=== PATIENT | female | born 1970 | race Caucasian/White ===

== ENCOUNTER → 2018-08-18 | Outpatient (CLI) | payer BC | LOC: COL.RAD 10:07 | DX: N28.89 Other specified disorders of kidney and ureter (principal); I82.3 Embolism and thrombosis of renal vein; R91.1 Solitary pulmonary nodule | CPT/HCPCS: Q9967 ==

== ENCOUNTER → 2018-08-24 | Outpatient (CLI) | payer BC | LOC: COL.RAD 14:30 | DX: N28.89 Other specified disorders of kidney and ureter (principal); E27.8 Other specified disorders of adrenal gland; R93.422 Abnormal radiologic findings on diagnostic imaging of left kidney; R91.8 Other nonspecific abnormal finding of lung field | CPT/HCPCS: Q9967 ==

== ENCOUNTER 2018-10-05 06:51 | Outpatient (CLI) | payer BC ==
[~2018-10-05] VITALS: Ht 167.6 cm; Wt 153.6 kg
[2018-10-05] VITALS (13 sets, daily range): BP systolic 100–153; BP diastolic 50–79; PULSE 43–79
[~2018-10-05 06:51] MED LIST: ASPIRIN 81M81 MG/TA2 PO; CELEXA 20MG20 MG/TAB PO; COLACE 100100 MG/CAP PO; ISTALOL 2.5 ML2.5 ML OD; LEVOXYL0.05 MG PO; MIRALAX119G PO; NORVASC 10MG10 MG PO; OMEGA-3 1000 MG1 CAP PO; PERCOCET 325 MG1 TA2 PO; PHILITH; PRINZIDE 12.5 M1 TA1 PO; TOPROL XL 25MG25 MG PO; XALATAN EYE DROPS OD
--- NOTE | 2018-10-05 08:15 | NUR ---
pt to ct per ambulation. Pt positioned prone on ct table. Monitors applied. O2 on at 2l/nc.
--- NOTE | 2018-10-05 08:35 | NUR ---
Specimen obtained by Dr Britt and placed in formalin and RPMI. Specimens labeled.
--- NOTE | 2018-10-05 10:42 | NUR ---
Duscharge instructions given to pt.pt verbalizes understanding.INT removed,catheter tip intact.
--- NOTE | 2018-10-05 10:50 | NUR ---
Pt escorted out by this nurse.pt requested to ambulate,refused offer of wheelchair.Ambulation observed steady gait,no distress observed.Mother to drive pt home.
== END 2018-10-05 11:10 | disposition home or self-care (01) ==
LOC: COL.RAD 06:51
DX: C64.2 Malignant neoplasm of left kidney, except renal pelvis (principal); R91.8 Other nonspecific abnormal finding of lung field
CPT/HCPCS: J2250; J3010

== ENCOUNTER → 2018-11-02 | Outpatient (CLI) | payer BC | LOC: COL.RAD 10:23 | DX: C64.2 Malignant neoplasm of left kidney, except renal pelvis (principal); C78.2 Secondary malignant neoplasm of pleura; E27.8 Other specified disorders of adrenal gland; K45.8 Other specified abdominal hernia without obstruction or gangrene; Z90.5 Acquired absence of kidney; Z98.890 Other specified postprocedural states | CPT/HCPCS: Q9967 ==

== ENCOUNTER 2018-12-16 20:14 | Emergency (ER) | payer BC ==
[~2018-12-16] VITALS: Ht 170.2 cm; Wt 145.5 kg
[2018-12-16 20:21] VITALS: TEMP 98
[2018-12-16] MEDS ORDERED: DIFLUCAN 100MG100 MG PO (21:06)
[2018-12-16] MEDS ORDERED: KEYTRUDA25 MG/ML IV (21:07)
[2018-12-16 21:24] LABS: BASO # 0.1 (0.0-0.2); BASO % 0.5 % (0.0-2.0); EOS # 0.4 (0.0-0.7); EOS % 4.6 % (0-4.0); GRAN # 6.4 (1.4-6.5); GRAN % 68.4 % (42.2-75.2); HEMATOCRIT 37.9 % (37.0-47.0); HEMOGLOBIN 12.9 g/dl (12.5-16.0); LYMPH # 1.8 (1.2-3.4); LYMPH % 19.1 % (20.0-51.0); MEAN CELL VOLUME 86 fl (80.0-100.0); MEAN CORPUSCULAR HEMOGLOBIN 29 pg (27.0-31.0); MEAN CORPUSCULAR HGB CONC 34 g/dl (33.0-37.0); MEAN PLATELET VOLUME 9.4 fl (7.4-10.4); MONO # 0.6 (0.1-0.6); MONO % 6.8 % (1.7-9.3); PLATELET COUNT 166 K/mm3 (130-400); RED BLOOD COUNT 4.42 M/mm3 (4.10-5.30); REDCELL DISTRIBUTION WIDTH-CV 15.7 % (11.5-14.5)
[2018-12-16 21:25] LABS: COLLECTION METHOD CLEAN CATCH
[2018-12-16 21:34] LABS: PH 7 (5-8); SQUAMOUS EPITHELIAL 0-2 /hpf; URINE APPEARANCE Clear; URINE BACTERIA None Seen /hpf; URINE BILIRUBIN Negative (NEGATIVE); URINE BLOOD Negative (NEGATIVE); URINE COLOR Yellow; URINE GLUCOSE Negative (NEGATIVE); URINE KETONE Negative (NEGATIVE); URINE LEUKOCYTE ESTERASE Negative (NEGATIVE); URINE NITRATE Negative (NEGATIVE); URINE PROTEIN(semi-quant) 1+ (NEGATIVE); URINE RBC 0-2 /hpf; URINE UROBILINOGEN Negative (NEGATIVE)
[2018-12-16 21:37] LABS: ALANINE AMINOTRANSFERASE 30 U/L (9-52); ALBUMIN 4.1 gm/dL (3.5-5.0); ALKALINE PHOSPHATASE 77 U/L (50-136); ANION GAP 11 mmol/L (7-16); AST,SGOT 39 U/L (15-37); BILIRUBIN,TOTAL 0.5 mg/dL (0.0-1.0); BLOOD UREA NITROGEN 23 mg/dL (7-17); C-REACTIVE PROTEIN 3.1 mg/dL (0.0-0.9); CALCIUM 9.8 mg/dL (8.4-10.2); CARBON DIOXIDE 28 mmol/L (22-30); CHLORIDE 101 mmol/L (98-107); CREATININE, serum 1.27 (0.52-1.25); GLUCOSE 93 mg/dL (74-106); LIPASE 217 U/L (23-300); POTASSIUM 4.4 mmol/L (3.4-5.0); SODIUM 139 mmol/L (137-145); TOTAL PROTEIN 8.1 gm/dL (6.4-8.2)
[2018-12-16 21:55] LABS: TROPONIN-I < 0.012 ng/mL (0.000-0.035)
[2018-12-16 22:50] VITALS: BP 180/97; PULSE 47
== END 2018-12-16 22:50 | disposition home or self-care (01) ==
LOC: COL.ER 20:14
PROVIDERS: Emergency Medicine
DX: C64.9 Malignant neoplasm of unspecified kidney, except renal pelvis (principal); C78.00 Secondary malignant neoplasm of unspecified lung; I10 Essential (primary) hypertension; Z79.82 Long term (current) use of aspirin
CPT/HCPCS: J7030; Q9967

== ENCOUNTER → 2019-01-17 | Outpatient (CLI) | payer BC ==
[~2019-01-17] MED LIST changes: +DIFLUCAN 100MG100 MG PO; +KEYTRUDA25 MG/ML IV
== END ==
LOC: COL.RAD 07:19
DX: C64.2 Malignant neoplasm of left kidney, except renal pelvis (principal)
CPT/HCPCS: Q9967

== ENCOUNTER → 2020-06-21 | Outpatient (CLI) | payer MEDICAID | LOC: COL.RAD 07:48 | DX: C64.2 Malignant neoplasm of left kidney, except renal pelvis (principal); K76.0 Fatty (change of) liver, not elsewhere classified; K43.9 Ventral hernia without obstruction or gangrene; E27.8 Other specified disorders of adrenal gland; M89.9 Disorder of bone, unspecified; R91.8 Other nonspecific abnormal finding of lung field; Z90.5 Acquired absence of kidney | CPT/HCPCS: Q9967 ==

== ENCOUNTER → 2020-10-04 | Outpatient (CLI) | payer MEDICAID | LOC: COL.RAD 08:53 | DX: C64.2 Malignant neoplasm of left kidney, except renal pelvis (principal); E27.8 Other specified disorders of adrenal gland; M89.9 Disorder of bone, unspecified; K43.9 Ventral hernia without obstruction or gangrene; Z90.5 Acquired absence of kidney | CPT/HCPCS: Q9967 ==

== ENCOUNTER → 2021-05-27 | Outpatient (CLI) | payer MEDICAID | LOC: MC.RAD 15:33 | DX: Z12.31 Encounter for screening mammogram for malignant neoplasm of breast (principal); N63.10 Unspecified lump in the right breast, unspecified quadrant ==

== ENCOUNTER → 2021-06-02 | Outpatient (CLI) | payer MEDICAID | LOC: MC.RAD 10:59 | DX: N63.10 Unspecified lump in the right breast, unspecified quadrant (principal) ==

== ENCOUNTER → 2021-12-22 | Outpatient (CLI) | payer MEDICAID | LOC: MC.RAD 13:45 | DX: N63.13 Unspecified lump in the right breast, lower outer quadrant (principal) ==

== ENCOUNTER → 2022-01-30 | Outpatient (CLI) | payer MEDICAID | LOC: COL.RAD 09:22 | DX: C64.9 Malignant neoplasm of unspecified kidney, except renal pelvis (principal); R91.1 Solitary pulmonary nodule | CPT/HCPCS: Q9967 ==

== ENCOUNTER → 2022-07-20 | Outpatient (CLI) | payer MEDICAID | LOC: MC.RAD 12:50 | DX: N63.10 Unspecified lump in the right breast, unspecified quadrant (principal) ==

== ENCOUNTER → 2023-06-04 | Outpatient (CLI) | payer MEDICARE | LOC: COL.RAD 07:45 | DX: C64.2 Malignant neoplasm of left kidney, except renal pelvis (principal); C79.51 Secondary malignant neoplasm of bone | CPT/HCPCS: Q9967 ==

== ENCOUNTER 2023-10-04 08:06 | Day surgery (SDC) | payer MEDICARE ==
[~2023-10-04] VITALS: Ht 170.2 cm; Wt 114.8 kg
[~2023-10-04 08:06] MED LIST changes: -LEVOXYL0.05 MG PO; +LEVOXYL0.15 MG PO; +LR 1,000 ML IV SCH
[2023-10-04] MEDS ORDERED: OPDIVO10 MG/ML IV (08:40)
[2023-10-04 09:09] LABS: BASO % 0.4 % (0.0-2.0); EOS # 0.3 K/mm3 (0.0-0.7); EOS % 5.1 % (0.0-4.0); GRAN # 3.8 K/mm3 (1.4-6.5); GRAN % 74.4 % (42.2-75.2); HEMOGLOBIN 10.9 g/dl (12.5-16.0); LYMPH # 0.7 K/mm3 (1.2-3.4); LYMPH % 12.9 % (20.0-51.0); MEAN CELL VOLUME 104 fl (80.0-100.0); MEAN CORPUSCULAR HEMOGLOBIN 35 pg (27-31); MEAN CORPUSCULAR HGB CONC 33 g/dl (33.0-37.0); MEAN PLATELET VOLUME 9.4 fl (7.4-10.4); MONO # 0.4 K/mm3 (0.1-0.6); PLATELET COUNT 212 K/mm3 (130-400); RED BLOOD COUNT 3.16 M/mm3 (4.10-5.30); REDCELL DISTRIBUTION WIDTH-CV 19.3 % (11.5-14.5)
[2023-10-04 09:10] LABS: HEMATOCRIT 32.7 % (37.0-47.0)
[2023-10-04] MEDS ORDERED: Lidocaine PF 2% (20 MG/ML) 10 ML POLY AMP IJ ONE (09:15)
[2023-10-04] MEDS ORDERED: Topical Skin Adhesive 1 EACH (1 ML) TOP ONE (09:15)
[2023-10-04 09:17] VITALS: BP 140/83; PULSE 55; TEMP 97.3
--- NOTE | 2023-10-04 09:22 | NUR ---
Pt arrived with mother, VSS and WNL, RR even and unlabored, reviewed and signed consents and pt had no questions/concerns, reviewed meds/allergies/pharm/history; attempted to get IV x2, assisted next by anesthesia with ultrasound.
[2023-10-04 09:28] LABS: ALBUMIN 2.9 g/dL (3.5-5.0); BILIRUBIN,TOTAL 0.3 mg/dL (0.2-1.2); CALCIUM 8.9 mg/dL (8.4-10.2); POTASSIUM 4.3 mEq/L (3.5-4.5); TOTAL PROTEIN 6.1 g/dl (6.2-8.1)
[2023-10-04] MEDS ORDERED: NS 10 ML IV ONE (09:34)
[2023-10-04] MEDS ORDERED: Lidocaine PF 2% (20 MG/ML) 5 ML VIAL ONE (09:34)
[2023-10-04 09:48] LABS: CREATININE, serum 0.82 mg/dL (0.57-1.11)
[2023-10-04] MEDS ORDERED: NORCO 325 MG-51 TAB PO (10:28)
[2023-10-04 11:00] VITALS: BP 108/62; PULSE 51; TEMP 96.8
--- NOTE | 2023-10-04 11:00 | NUR ---
PATIENT RETURNED TO ROOM 6 VIA CART, ALERT AND ORIENTED X3. DENIES PAIN, NAUSEA AND SHORTNESS OF BREATH. BREATHING REGULAR AND UNLABORED ON ROOM AIR. HANDOFF COMPLETED IN ROOM BY [facility] CRNA AND OR NURSE GREGORY. INCISION PRESENT TO RIGHT SIDE OF NECK AND ANOTHER INCISION ON THE RIGHT SIDE OF THE CHEST BOTH WITH VISIBLE SKIN GLUE CLOSURE. BOTH SURGICAL SITES ARE CLEAN AND DRY WITH SKIN GLUE INTACT. NO REDNESS OR SWELLING SURROUNDING BOTH INCISIONS. SEE CHART FOR VITAL SIGNS. BILATERAL RADIAL PULSES STRONG AND REGULAR. SKIN WARM AND DRY. ABDOMEN SOFT AND NONTENDER. PATIENT STATES SHE HAS HAD AN ABDOMINAL HERNIA SINCE KIDNEY SURGERY IN 2019, DENIES ABDOMINAL PAIN. PATIENT HAD WATER AND CHOCOLATE PUDDING. BOTH FOOD AND DRINK TOLERATED WELL. NO DYSPHAGIA. CALL LIGHT IN REACH. MOTHER, DIANNA, PRESENT IN ROOM.
--- NOTE | 2023-10-04 11:08 | NUR ---
MET WITH PATIENT AND DIANNA IN ROOM TO DISCUSS PROCEDURE.
[2023-10-04 11:13] VITALS: BP 129/73; PULSE 50
[2023-10-04 11:15] VITALS: BP 132/68; PULSE 55
[2023-10-04 11:30] VITALS: BP 138/73; PULSE 58
[2023-10-04 11:43] VITALS: BP 136/62; PULSE 60
--- NOTE | 2023-10-04 11:58 | NUR ---
1140: DISCHARGE TEACHING COMPLETED WITH PRINTED EDUCATION AND INSTRUCTIONS SENT HOME WITH PATIENT. PER , PT CAN FOLLOW UP NEEDED. PATIENT VERBALIZED UNDERSTANDING OF TEACHING. 1152: PATIENT AMBULATED TO RESTROOM WITH STEADY GAIT AND VOIDED WITHOUT DIFFICULTY. 1156: PATIENT DENIES PAIN AND NAUSEA. BOTH SURGICAL SITES ARE CLEAN AND DRY WITH SKIN GLUE INTACT. SURROUNDING SKIN INTACT, NO REDNESS OR INFLAMMATION. RIGHT FOREARM IV REMOVED. GAUZE AND COBAN PLACED OVER SITE. 1158: PATIENT CHANGED INTO PERSONAL CLOTHING AND SENT HOME WITH PORT A CATH INFORMATION CARD AND PACKET. DIANNA TRANSPORTED PATIENT HOME.
== END 2023-10-04 11:58 | disposition home or self-care (01) ==
LOC: SDCO 08:06
PROVIDERS: Surgery
DX: C64.9 Malignant neoplasm of unspecified kidney, except renal pelvis (principal); E66.9 Obesity, unspecified; Z87.891 Personal history of nicotine dependence
CPT/HCPCS: C1788; J0665; J0690; J1644; J2704; J7120